=== PATIENT | male | born 1970 | race Caucasian/White ===

== ENCOUNTER → 2020-01-16 07:40 | Outpatient (BNVA) | payer SELFPAY | PROVIDERS: Family Provider Family Medicine; PCP Family Medicine; Referring Provider Family Medicine; Visit Provider Urology | DX: R31.9 Hematuria, unspecified (principal); R31.21 Asymptomatic microscopic hematuria; M54.5 Low back pain; G89.29 Other chronic pain | CPT/HCPCS: 81001 ==

== ENCOUNTER → 2020-12-22 13:28 | Outpatient (BNVA) | payer OTHER, SELFPAY | PROVIDERS: Family Provider Family Medicine; PCP Family Medicine; Referring Provider Family Medicine; Visit Provider Podiatrist Foot & Ankle Surgery | DX: Q82.8 Other specified congenital malformations of skin (principal); M79.672 Pain in left foot; M20.42 Other hammer toe(s) (acquired), left foot | CPT/HCPCS: 73630 ==

== ENCOUNTER → 2025-07-27 11:52 | Outpatient (BNVA) | payer OTHER, SELFPAY | PROVIDERS: Family Provider Family Medicine; PCP Family Medicine; Referring Provider Family Medicine; Visit Provider Internal Medicine Rheumatology | DX: M25.50 Pain in unspecified joint (principal) | CPT/HCPCS: 36415; 82306; 83520; 86200; 86431; 86480; 86704; 86803; 86812; 87340 ==